=== PATIENT | male | born 1940 | race Caucasian/White ===

== ENCOUNTER 2019-03-08 13:48 | Inpatient (IN) | payer MEDICARE, OTHER ==
[~2019-03-08] VITALS: Ht 167.6 cm; Wt 67.8 kg
--- NOTE | 2019-03-08 14:02 | NUR ---
Note undone in EDM - 03/08/19 at 1516 by DARRELL ED Nurse Note: PT FROM [facility] DUE TO RECTAL BLEEDING STARTED LAST NIGHT. PT DENEIS ANY BLOOD IN HIS STOOL AND STATES THAT HE JUST HAVE PAIN ON HIS LESION ON HIS BACK. AAO X4, NON AMBULATORY WITH MILD SOB AT REST. NOTED DISTENDED ABDOMEN AND OPEN SORE ON HIS BACK.
--- NOTE | 2019-03-08 14:03 | NUR ---
ED Nurse Note: PT FROM [facility] DUE TO RECTAL BLEEDING STARTED LAST NIGHT. PT DENEIS ANY BLOOD IN HIS STOOL AND STATES THAT HE JUST HAVE PAIN ON HIS LESION ON HIS BACK. AAO X4, NON AMBULATORY WITH MILD SOB AT REST. NOTED DISTENDED ABDOMEN AND REDNESS ON HIS BACK.
[2019-03-08] MEDS ORDERED: Isovue-300 100ml vial INJ PRN (14:15)
[2019-03-08] MEDS ORDERED: Sodium Chloride 550 ML IV SCH (14:15)
--- NOTE | 2019-03-08 14:27 | Emergency Room Report ---
History of Present Illness General Chief Complaint: Gastrointestinal Bleed Source: Patient Present Illness HPI According to the residential facility the patient's had some rectal bleeding. The patient denies this. He says he is got a lesion on his left luteal area and its extremely painful. Is been there for several days. There is been no drainage. He has fluid retention and does not know why. He is here to have this lesion evaluated. The patient denies any abdominal pain although he states that he has distention. Denies vomiting. Review of records reveal these diagnoses: Heart failure, muscle weakness, unsteadiness on feet, pleural effusion, type 2 diabetes without complications, anemia, hypertension, HIV disease, gastric ulcer, acute kidney failure, chronic kidney disease, benign prostatic hypertrophy without lower urinary tract symptoms, abdominal distention, gaseous, diarrhea, urinary tract infection, adult failure to thrive The patient was admitted at [facility] from November 11 November 17 this year. Allergies: Coded Allergies: No Known Allergies (Unverified , 03/08/19) Patient History Past Medical History: see triage record, old chart reviewed Social History: Denies: smoking Social History Narrative [facility] facility Reviewed Nursing Documentation: PMH: Agreed; PSxH: Agreed Nursing Documentation-PMH Past Medical History: No History, Except For Hx Cardiac Problems: Yes - HF, Anemia, Hypotension, HIV+, BPH Hx Diabetes: Yes - Type 2 Review of Systems All Other Systems: negative except mentioned in HPI Physical Exam Vital Signs Date Time Temp Pulse Resp B/P (MAP) Pulse Ox O2 Delivery O2 Flow Rate FiO2 03/08/19 13:49 96.4 90 18 142/97 (112) 95 Room Air Sp02 EP Interpretation: reviewed, normal General Appearance: no apparent distress, alert, GCS 15, Chronically Ill Head: normocephalic, atraumatic Eyes: bilateral eye normal inspection, bilateral eye PERRL, bilateral eye EOMI ENT: dry mucus membranes Neck: supple Respiratory: lungs clear, normal breath sounds Cardiovascular #1: regular rate, rhythm, edema - Sarka Cardiovascular #2: 2+ radial (R) Gastrointestinal: no guarding, no rebound, distended, decreased bowel sounds Rectal: other - Yellow stool, no blood Genitourinary: no CVA tenderness, other - Rodriguez catheter Musculoskeletal: back normal, no calf tenderness, decreased range of motion - Due to edema Neurologic: oriented x3, outside sales representative insurance III-XII nml as tested, sensory intact, cerebellar normal, motor weakness Psychiatric: depressed affect Skin: other - Swelling and tenderness to the left of the rectum with induration and no fluctuance Medical Decision Making Diagnostic Impression: Primary Impression: Perirectal cellulitis Additional Impressions: UTI (urinary tract infection) Qualified Codes: T83.511A - Infection and inflammatory reaction due to indwelling urethral catheter, initial encounter; N39.0 - Urinary tract infection , site not specified Anasarca Renal insufficiency Ascites Qualified Codes: R18.8 - Other ascites ER Course Patient presents with a painful lesion to left of his rectum and there is a claim that he has GI bleeding although this is not apparent. Differential includes abscess, cellulitis, perirectal abscess, diverticulitis, heel decubitus , urinary tract infection, ascites amongst others. The patient will be evaluated with EKG, CT of the abdomen and pelvis and labs. The patient was offered several pain medications and he declined all of them. The patient will be treated with gentle IV hydration. EKG without injury. CT as below. Normal CBC. CMP with renal insufficiency and elevated alk phos. Urinalysis with pyuria. Zosyn and Vanco started for cellulitis and UTI. Patient examined by Dr. Major in the emergency department. Admit med floor Dr. Chong. Laboratory Tests Test 03/08/19 14:10 White Blood Count 7.4 K/UL (4.8-10.8) Red Blood Count 4.61 M/UL (4.70-6.10) L Hemoglobin 13.9 G/DL (14.2-18.0) L Hematocrit 44.7 % (42.0-52.0) Mean Corpuscular Volume 97 FL (80-99) Mean Corpuscular Hemoglobin 30.2 PG (27.0-31.0) Mean Corpuscular Hemoglobin Concent 31.2 G/DL (32.0-36.0) L Red Cell Distribution Width 15.5 % (11.6-14.8) H Platelet Count 139 K/UL (150-450) L Mean Platelet Volume 7.4 FL (6.5-10.1) Neutrophils (%) (Auto) 69.3 % (45.0-75.0) Lymphocytes (%) (Auto) 17.9 % (20.0-45.0) L Monocytes (%) (Auto) 12.5 % (1.0-10.0) H Eosinophils (%) (Auto) 0.2 % (0.0-3.0) Basophils (%) (Auto) 0.2 % (0.0-2.0) Erythrocyte Sedimentation Rate 15 MM/HR (0-20) Prothrombin Time 11.8 SEC (9.30-11.50) H Prothrombin Time INR 1.1 (0.9-1.1) PTT 29 SEC (23-33) Urine Color Pale yellow Urine Appearance Very cloudy Urine pH 9 (4.5-8.0) Urine Specific [place] 1.015 (1.005-1.035) Urine Protein 4+ (NEGATIVE) H Urine Glucose (UA) Negative (NEGATIVE) Urine Ketones Negative (NEGATIVE) Urine Blood 5+ (NEGATIVE) H Urine Nitrite Negative (NEGATIVE) Urine Bilirubin Negative (NEGATIVE) Urine Urobilinogen Normal MG/DL (0.0-1.0) Urine Leukocyte Esterase 3+ (NEGATIVE) H Urine RBC 5-10 /HPF (0 - 0) H Urine WBC 5-10 /HPF (0 - 0) H Urine Squamous Epithelial Cells None /LPF (NONE/OCC) Urine Bacteria Many /HPF (NONE) H Sodium Level 142 MMOL/L (136-145) Potassium Level 4.3 MMOL/L (3.5-5.1) Chloride Level 106 MMOL/L (98-107) Carbon Dioxide Level 27 MMOL/L (21-32) Anion Gap 9 mmol/L (5-15) Blood Urea Nitrogen 40 mg/dL (7-18) H Creatinine 1.7 MG/DL (0.55-1.30) H Estimate Glomerular Filtration Rate mL/min (>60) Glucose Level 205 MG/DL (74-106) H Calcium Level 9.1 MG/DL (8.5-10.1) Total Bilirubin 0.7 MG/DL (0.2-1.0) Aspartate Amino Transferase (AST) 35 U/L (15-37) Alanine Aminotransferase (ALT) 38 U/L (12-78) Alkaline Phosphatase 159 U/L (46-116) H Total Creatine Kinase 23 U/L (26-308) L Troponin I 0.049 ng/mL (0.000-0.056) C-Reactive Protein, Quantitative 5.8 mg/dL (0.00-0.90) H Total Protein 7.5 G/DL (6.4-8.2) Albumin 3.6 G/DL (3.4-5.0) Globulin 3.9 g/dL Albumin/Globulin Ratio 0.9 (1.0-2.7) L Lipase 347 U/L (73-393) EKG Diagnostic Results Rate: normal Rhythm: NSR ST Segments: no acute changes - Left atrial enlargement, incomplete right bundle branch block with ST inversions inferiorly and septally Rhythm Strip Diag. Results EP Interpretation: yes Rhythm: NSR, no PVC's, no ectopy CT/MRI/US Diagnostic Results CT/MRI/US Diagnostic Results : Imaging Test Ordered: Abdomen pelvis Impression Severe anal and anterior rectal wall thickening no identified abscess 0.7 cm left distal ureteral partially obstructing stone Bladder wall thickening Bilateral ureteral urothelial thickening concerning for ascending urinary tract infections Bilateral low-attenuation layering pleural effusions with passive atelectasis Calcifications posterior to the Rodriguez catheter potentially representing urolithiasis in the prostatic urethra Bilateral nonobstructing multiple nephroliths. Bilateral low-attenuation renal masses Large ascites with areas of omental fat stranding and edema Regular hepatic morphology suggesting chronic liver disease Bilateral adrenal nodular thickening and enlargement suggesting adrenal benign lipid rich adenomas ASCVD Large colonic stool burden Anasarca Degenerative spine findings with osteopenia and left hip advanced osteoarthritis with pelvic bone islands with consideration for sclerotic metastatic lesions Last Vital Signs Date Time Temp Pulse Resp B/P (MAP) Pulse Ox O2 Delivery O2 Flow Rate FiO2 03/08/19 20:00 97.4 85 24 147/99 (115) 97 03/08/19 18:20 Room Air Status: improved Disposition: ADMITTED INPATIENT Condition: Serious Garfield Mendez MD Mar 08, 2019 14:27
[2019-03-08 14:30] VITALS: BP 140/83
[2019-03-08 14:34] LABS: BASOPHILS % (AUTO) 0.2 % (0.0-2.0); EOSINOPHILS % (AUTO) 0.2 % (0.0-3.0); HEMATOCRIT 44.7 % (42.0-52.0); HEMOGLOBIN 13.9 G/DL (14.2-18.0); LYMPHOCYTES % (AUTO) 17.9 % (20.0-45.0); MEAN CORPUSCULAR VOLUME 97 FL (80-99); MONOCYTES % (AUTO) 12.5 % (1.0-10.0); NEUTROPHILS % (AUTO) 69.3 % (45.0-75.0); PLATELET COUNT 139 K/UL (150-450); RED BLOOD COUNT 4.61 M/UL (4.70-6.10); RED CELL DISTRIBUTION WIDTH 15.5 % (11.6-14.8); WHITE BLOOD COUNT 7.4 K/UL (4.8-10.8)
[2019-03-08 14:45] LABS: ANION GAP 9 mmol/L (5-15); BLOOD UREA NITROGEN 40 mg/dL (7-18); CALCIUM 9.1 MG/DL (8.5-10.1); CARBON DIOXIDE 27 MMOL/L (21-32); CHLORIDE 106 MMOL/L (98-107); CREATININE 1.7 MG/DL (0.55-1.30); POTASSIUM 4.3 MMOL/L (3.5-5.1); SODIUM 142 MMOL/L (136-145)
[2019-03-08 14:46] LABS: APPEARANCE,URINE VERY CLOUDY; BILIRUBIN, URINE NEGATIVE (NEGATIVE); COLOR,URINE PALE YELLOW; GLUCOSE, URINE (UA) NEGATIVE (NEGATIVE); INR 1.1 (0.9-1.1); KETONES,URINE NEGATIVE (NEGATIVE); LEUKOCYTE ESTERASE ,URINE 3+ (NEGATIVE); NITRITE,URINE NEGATIVE (NEGATIVE); PH,URINE 9 (4.5-8.0); PROTEIN,URINE 4+ (NEGATIVE); UROBILINOGEN,URINE NORMAL MG/DL (0.0-1.0)
[2019-03-08 14:50] LABS: ALANINE AMINOTRANSFERASE 38 U/L (12-78); ALBUMIN 3.6 G/DL (3.4-5.0); ALBUMIN/GLOBULIN RATIO 0.9 (1.0-2.7); ALKALINE PHOSPHATASE 159 U/L (46-116); ASPARTATE AMINO TRANSFERASE 35 U/L (15-37); BILIRUBIN,TOTAL 0.7 MG/DL (0.2-1.0); CREATINE KINASE 23 U/L (26-308)
--- NOTE | 2019-03-08 15:00 | NUR ---
ED Nurse Note: ORAL CONTRAST DRANK AT 1500.
[2019-03-08] MEDS ORDERED: Piperacillin/Tazobactam 3.375 GM in NS 110 ML IVPB ONE (15:45)
[2019-03-08] MEDS ORDERED: Vancomycin 1 GM in NS 275 ML IVPB ONE (15:45)
[2019-03-08 16:20] VITALS: BP 150/95
[2019-03-08] MEDS ORDERED: FUROSEMIDE40 MG ORAL (16:36)
[2019-03-08] MEDS ORDERED: LANTUS SOL100 UNIT/1 SUBQ (16:36)
[2019-03-08] MEDS ORDERED: FLOMAX0.4 MG ORAL (16:36)
[2019-03-08] MEDS ORDERED: FERROUS SULFAT325 MG ORAL (16:36)
[2019-03-08] MEDS ORDERED: ALREX5 ML OP (16:36)
[2019-03-08] MEDS ORDERED: BETIMOL5 M2 OP (16:36)
[2019-03-08] MEDS ORDERED: URECHOLINE25 M1 ORAL (16:36)
[2019-03-08] MEDS ORDERED: MULTIVITAMINS1 EA13 ORAL (16:36)
[2019-03-08] MEDS ORDERED: NEPHROVITE1 TAB ORAL (16:36)
--- NOTE | 2019-03-08 17:18 | NUR ---
ED Nurse Note: REPORT GIVEN TO TONYA BOB OF MED SURG UNIT.
[2019-03-08] MEDS ORDERED: LORazepam 1mg tab ORAL PRN (17:30)
[2019-03-08] MEDS ORDERED: Morphine Sulfate 2mg/ml Inj(IV/IM USE ONLY) IVP PRN ×2 (17:30)
--- NOTE | 2019-03-08 18:16 | NUR ---
NURSE NOTES: Admitted pt from ER with stable condition under dr. Ellsworth for Gi bleeding. pt denies any bleeding at this time. pt is a/ox4, breathing regular and unlabored. Full body assessment was done and noted with sacral redness and (B)heel redness. pt has generalized body edema. picture taken and uploaded. pt also noted with high blood pressure 162/108 HR 90. Called and spoke with Dr. howell and received new order. pt came with melendez catheter from previous snf and draining well. IV site intact and patent. belongings checked and kept at bedside. will continue to monitor
[2019-03-08] MEDS: Bethanechol 25mg Tab ORAL SCH ×2 (18:37→21:24)
[2019-03-08] MEDS: HydrALAZINE 25mg tab ORAL PRN (18:38)
--- NOTE | 2019-03-08 19:12 | NUR ---
HAND-OFF: Report given to PAULINO Medley.
--- NOTE | 2019-03-08 19:52 | History and Physical ---
History of Present Illness General Date patient seen: Mar 08, 2019 Time patient seen: 15:00 Reason for Hospitalization: Gastrointestinal Bleed Present Illness HPI 78 y old male with HIV on HARRT therapy and CKD 3-4 who is a resident of [facility]. TOday, he developed acute rectal bleed and is transferred for evaluation .On admission he is with normal vital signs and no more bleeding is noted, He will be admitted for medical and surgical evaluation, UTI was noted by the ER and broad sp antibiotics were started, cultures collected, Allergies: Coded Allergies: No Known Allergies (Unverified , 03/08/19) Medication History Scheduled Bethanechol Chl* (Urecholine*), 25 MG ORAL FOUR TIMES A DAY, (Reported) Ferrous Sulfate* (Ferrous Sulfate*), 325 MG ORAL TWICE A DAY, (Reported) Furosemide* (Lasix*), 40 MG ORAL DAILY, (Reported) Insulin Glargine (Lantus), 0 SUBQ BEDTIME, (Reported) Multivitamin with Minerals (Multivitamins with Minerals), 1 TAB ORAL DAILY, ( Reported) Tamsulosin HCl (Flomax), 0.4 MG ORAL DAILY, (Reported) Vitamin B Cmplx/Vit C/Folic AC (Nephro-[place] Tablet), 1 TAB ORAL DAILY, (Reported ) Miscellaneous Medications Loteprednol Etabonate (Alrex), 5 ML OP, (Reported) Timolol (Betimol), 5 ML OP, (Reported) Patient History Healthcare decision maker Resuscitation status Full Code Advanced Directive on File Yes Review of Systems Constitutional: Reports: no symptoms Gastrointestinal: Reports: see HPI, melena Physical Exam General Appearance: WD/WN Lines, tubes and drains: peripheral HEENT: normocephalic Neck: non-tender Respiratory/Chest: chest wall non-tender, lungs clear Cardiovascular/Chest: normal rate Abdomen: non tender, distended Neurologic: glove cleaner II-XII grossly normal Last 24 Hour Vital Signs Date Time Temp Pulse Resp B/P (MAP) Pulse Ox O2 Delivery O2 Flow Rate FiO2 03/08/19 18:38 162/108 03/08/19 18:20 Room Air 03/08/19 16:20 98.6 86 17 150/95 98 Room Air 03/08/19 14:30 97.0 86 14 140/83 97 Room Air 7/15/19 14:02 90 18 Room Air 03/08/19 13:49 96.4 90 18 142/97 (112) 95 Room Air Laboratory Tests Test 03/08/19 14:10 White Blood Count 7.4 K/UL (4.8-10.8) Red Blood Count 4.61 M/UL (4.70-6.10) L Hemoglobin 13.9 G/DL (14.2-18.0) L Hematocrit 44.7 % (42.0-52.0) Mean Corpuscular Volume 97 FL (80-99) Mean Corpuscular Hemoglobin 30.2 PG (27.0-31.0) Mean Corpuscular Hemoglobin Concent 31.2 G/DL (32.0-36.0) L Red Cell Distribution Width 15.5 % (11.6-14.8) H Platelet Count 139 K/UL (150-450) L Mean Platelet Volume 7.4 FL (6.5-10.1) Neutrophils (%) (Auto) 69.3 % (45.0-75.0) Lymphocytes (%) (Auto) 17.9 % (20.0-45.0) L Monocytes (%) (Auto) 12.5 % (1.0-10.0) H Eosinophils (%) (Auto) 0.2 % (0.0-3.0) Basophils (%) (Auto) 0.2 % (0.0-2.0) Erythrocyte Sedimentation Rate 15 MM/HR (0-20) Prothrombin Time 11.8 SEC (9.30-11.50) H Prothromb Time International Ratio 1.1 (0.9-1.1) Activated Partial Thromboplast Time 29 SEC (23-33) Urine Color Pale yellow Urine Appearance Very cloudy Urine pH 9 (4.5-8.0) Urine Specific [place] 1.015 (1.005-1.035) Urine Protein 4+ (NEGATIVE) H Urine Glucose (UA) Negative (NEGATIVE) Urine Ketones Negative (NEGATIVE) Urine Blood 5+ (NEGATIVE) H Urine Nitrite Negative (NEGATIVE) Urine Bilirubin Negative (NEGATIVE) Urine Urobilinogen Normal MG/DL (0.0-1.0) Urine Leukocyte Esterase 3+ (NEGATIVE) H Urine RBC 5-10 /HPF (0 - 0) H Urine WBC 5-10 /HPF (0 - 0) H Urine Squamous Epithelial Cells None /LPF (NONE/OCC) Urine Bacteria Many /HPF (NONE) H Sodium Level 142 MMOL/L (136-145) Potassium Level 4.3 MMOL/L (3.5-5.1) Chloride Level 106 MMOL/L (98-107) Carbon Dioxide Level 27 MMOL/L (21-32) Anion Gap 9 mmol/L (5-15) Blood Urea Nitrogen 40 mg/dL (7-18) H Creatinine 1.7 MG/DL (0.55-1.30) H Estimat Glomerular Filtration Rate mL/min (>60) Glucose Level 205 MG/DL (74-106) H Calcium Level 9.1 MG/DL (8.5-10.1) Total Bilirubin 0.7 MG/DL (0.2-1.0) Aspartate Amino Transf (AST/SGOT) 35 U/L (15-37) Alanine Aminotransferase (ALT/SGPT) 38 U/L (12-78) Alkaline Phosphatase 159 U/L (46-116) H Total Creatine Kinase 23 U/L (26-308) L Troponin I 0.049 ng/mL (0.000-0.056) C-Reactive Protein, Quantitative 5.8 mg/dL (0.00-0.90) H Total Protein 7.5 G/DL (6.4-8.2) Albumin 3.6 G/DL (3.4-5.0) Globulin 3.9 g/dL Albumin/Globulin Ratio 0.9 (1.0-2.7) L Lipase 347 U/L (73-393) Height (Feet): 5 Height (Inches): 6.00 Weight (Pounds): 150 Medications Current Medications Medications (Trade) Dose Ordered Sig/Dex Route PRN Reason Start Time Stop Time Status Last Admin Dose Admin Acetaminophen (Tylenol) 650 mg Q4H PRN ORAL Mild Pain (Pain Scale 1-3) 03/08/19 17:30 04/07/19 17:29 Barium Sulfate (Readi-Cat 2) 450 ml NOW PRN ORAL Radiology Procedure 03/08/19 14:15 03/10/19 14:04 Bethanechol Chloride (Urecholine) 25 mg FOUR TIMES A DAY ORAL 03/08/19 18:00 04/07/19 17:59 03/08/19 18:37 Dextrose (Dextrose 50%) 25 ml Q30M PRN IV Hypoglycemia 03/08/19 17:30 04/07/19 17:29 Dextrose (Dextrose 50%) 50 ml Q30M PRN IV Hypoglycemia 03/08/19 17:30 04/07/19 17:29 Ferrous Sulfate (Feosol) 325 mg TWICE A DAY ORAL 03/08/19 18:00 04/07/19 17:59 03/08/19 18:37 Furosemide (Lasix) 40 mg DAILY ORAL 03/09/19 09:00 04/08/19 08:59 Hydralazine HCl (Apresoline) 25 mg Q6H PRN ORAL For High Blood Pressure 03/08/19 18:30 04/07/19 18:29 03/08/19 18:38 Lorazepam (Ativan) 1 mg Q4H PRN ORAL For Anxiety 03/08/19 17:30 03/15/19 17:29 Morphine Sulfate (Morphine Sulfate) 1 mg Q4H PRN IVP Mild Pain (Pain Scale 1-3) 03/08/19 17:30 03/15/19 17:29 Morphine Sulfate (Morphine Sulfate) 2 mg Q4H PRN IVP Moderate Pain (Pain Scale 4-6) 03/08/19 17:30 03/15/19 17:29 Ondansetron HCl (Zofran) 4 mg Q6H PRN IVP Nausea & Vomiting 03/08/19 17:30 04/07/19 17:29 Piperacillin Sod/ Tazobactam Sod 3.375 gm/Sodium Chloride 110 ml @ 27.5 mls/hr Q8H IVPB 03/09/19 00:00 03/16/19 00:00 Sodium Chloride 1,000 ml @ 50 mls/hr ONCE ONCE IV 03/08/19 17:30 03/09/19 13:29 03/08/19 18:38 Tamsulosin HCl (Flomax) 0.4 mg DAILY ORAL 03/09/19 09:00 04/08/19 08:59 Temazepam (Restoril) 15 mg HSPRN PRN ORAL Insomnia 03/08/19 17:30 03/15/19 17:29 Vitamin B Complex/ Vit C/Folic Acid (Nephrovite) 1 tab DAILY ORAL 03/09/19 09:00 04/08/19 08:59 Assessment/Plan Status Narrative 78 y/o male with acute rectal bleed. # Rectal bleeding Hb is stable Monitor CBC in amd and surgical consult requested via ER attending with Dr. Soto, ? hemorrhoid vs other # HIV disease Continue HARRT # LEukocytosis UA is positive COntinue antibiotics and follow up cultures # CKD 3-4 Avoid nephrotoxins Serial creatinine # Disposition SNF resident _# FULL CODE Juan Carlos Major MD Mar 08, 2019 19:52
[2019-03-08 20:00] VITALS: BP 147/99
--- NOTE | 2019-03-08 20:07 | NUR ---
NURSE NOTES: Received report from Lacey Coyle RN. Patient sleeping. On room air, no signs of distress or labored breathing. IV intact, patent, and running IV fluids. bed in lowest position with call light in reach. Will continue with plan of care.
[2019-03-08] MEDS ORDERED: Zosyn 2.25gm inj IV SCH (22:00)
[2019-03-09] VITALS: BP 154/104
[2019-03-09] MEDS: Zoysn 3.37gm in NS 100ML IVPB SCH ×3 (00:36→17:07)
[2019-03-09 04:00] VITALS: BP 164/113
[2019-03-09] MEDS: HydrALAZINE 25mg tab ORAL PRN ×2 (06:06→13:10)
[2019-03-09 07:08] LABS: BASOPHILS % (AUTO) 0.3 % (0.0-2.0); EOSINOPHILS % (AUTO) 0.3 % (0.0-3.0); HEMATOCRIT 42.1 % (42.0-52.0); HEMOGLOBIN 12.9 G/DL (14.2-18.0); LYMPHOCYTES % (AUTO) 15.7 % (20.0-45.0); MEAN CORPUSCULAR VOLUME 97 FL (80-99); MONOCYTES % (AUTO) 11.1 % (1.0-10.0); NEUTROPHILS % (AUTO) 72.6 % (45.0-75.0); PLATELET COUNT 142 K/UL (150-450); RED BLOOD COUNT 4.33 M/UL (4.70-6.10); RED CELL DISTRIBUTION WIDTH 15.7 % (11.6-14.8); WHITE BLOOD COUNT 7.5 K/UL (4.8-10.8)
[2019-03-09 07:12] LABS: ALANINE AMINOTRANSFERASE 32 U/L (12-78); ALBUMIN 3.2 G/DL (3.4-5.0); ALBUMIN/GLOBULIN RATIO 0.9 (1.0-2.7); ALKALINE PHOSPHATASE 140 U/L (46-116); ANION GAP 8 mmol/L (5-15); ASPARTATE AMINO TRANSFERASE 24 U/L (15-37); BILIRUBIN,TOTAL 0.7 MG/DL (0.2-1.0); BLOOD UREA NITROGEN 36 mg/dL (7-18); CALCIUM 8.7 MG/DL (8.5-10.1); CARBON DIOXIDE 28 MMOL/L (21-32); CHLORIDE 107 MMOL/L (98-107); POTASSIUM 4.1 MMOL/L (3.5-5.1); SODIUM 143 MMOL/L (136-145)
--- NOTE | 2019-03-09 07:37 | NUR ---
NURSE NOTES: pt in bed with no sob nor in any form of distress noted. Breathing regular unlabored. Rodriguez draining well with no obstruction. IVF still running. bed in lowest position. call light within reach at all time. will continue to monitor
--- NOTE | 2019-03-09 07:48 | NUR ---
HAND-OFF: Report given to YAS MIR rn.
[2019-03-09 08:00] VITALS: BP 149/106
[2019-03-09 08:12] LABS: CREATININE 1.8 MG/DL (0.55-1.30)
[2019-03-09] MEDS ORDERED: Furosemide 40mg tab ORAL SCH (09:00)
[2019-03-09] MEDS: Bethanechol 25mg Tab ORAL SCH ×4 (09:07→21:01)
[2019-03-09] MEDS: Nephrovite tab (Rena-Vite) ORAL SCH (09:07)
[2019-03-09] MEDS: Tamsulosin 0.4mg cap ORAL SCH (09:07)
--- NOTE | 2019-03-09 09:23 | Diagnostic Imaging Report ---
Indication: Rectal bleeding and pain, gluteal area lesion Technique: Spiral acquisitions obtained through the abdomen and pelvis. Patient ingested a small amount of enteric contrast. No IV contrast utilized, per referring physician request.. Multiplanar reconstructions were generated. Total dose length product 868.72 mGycm. CTDIvol(s) 15.23 mGy. Dose reduction achieved using automated exposure control Comparison: None Findings: Lack of IV contrast limits evaluation. There is some wall thickening of the anal region. There is some infiltration of the perirenal fat, particularly posterior to the anus, but no discrete fluid collection demonstrated. There may be slight superficial ulceration. No soft tissue gas is demonstrated in the area. There is very slight distention of the rectum by feces. There is a moderate amount of ascites fluid present. No free intraperitoneal gas demonstrated. There is a sliding-type hiatal hernia present. There is nonopacification of the posterior stomach. This could be wall thickening or could be due to ingested contents. The appendix is normal. There is colonic diverticulosis. No evidence of diverticulitis. No small bowel distention or small bowel wall thickening. Ingested contrast has traversed the entirety of the small bowel and reached the cecum. There is congestion as well as stranding of the mesenteric fat. Lack of IV contrast limits assessment of the solid organs. The liver demonstrates a subcentimeter lesion in segment 8 which is too small to characterize. There is equivocal slightly irregular hepatic surface morphology and relative slight atrophy of the right lobe and hypertrophy of the left lobe. The gallbladder and bile ducts are unremarkable. The pancreas is atrophic. The spleen is unremarkable. The the left adrenal is diffusely markedly enlarged. The right adrenal is mildly enlarged. The kidneys demonstrate bilateral intrarenal calyceal calculi. There also demonstrate multiple cysts, as well as multiple subcentimeter low-attenuation lesions which are too small to characterize. There are some indeterminate attenuation lesions as well. There is a 7 x 5 mm calculus within the distal left ureter possibly 5 cm proximal to the ureterovesical junction. This results in mild hydronephrosis and proximal hydroureter. The bladder is nearly empty, contains a Rodriguez catheter. There is suggestion of bladder wall thickening. Numerous calculi are seen within the bladder lumen, measuring up to 12 mm in diameter. There is thickening of the bilateral ureteral and renal pelvic velasquez. Calcifications in the prostate are probably parenchymal, although 2 small calcifications adjacent to the shaft of the Rodriguez catheter could be intraluminal within the urethra There is diffuse edema of the subcutaneous fat. There are bilateral large pleural effusions. These result in compressive atelectasis of a significant portion of both lower lobes. The bones demonstrate degenerative spondylosis changes. There are severe degenerative changes of the left hip. Impression: Anal wall thickening, perianal inflammation may indicate proctitis. There is some inflammation extending to the skin surface posterior to the anus and possibly some superficial ulceration, but no abscess is demonstrated Positive for 7 x 5 mm distal left ureteral calculus. This results in very mild hydronephrosis and proximal hydroureter Numerous intrarenal calyceal calculi bilaterally. Numerous bladder calculi. Calcifications within the prostate are probably parenchymal but one or more could be intraureteral Apparent urinary bladder wall thickening, probably an artifact of under distention, but chronic bladder outlet obstruction or cystitis possible Rodriguez catheter in place. Bilateral renal cysts. Indeterminate attenuation renal lesions are also present, probably representing proteinaceous cysts but solid neoplasm not excludable. Consider MRI for better characterization if clinically indicated Apparent urothelial thickening, could indicate ureteritis/pyelitis. Moderate to large amount of ascites. Omental and mesenteric congestion. Omental fat stranding is probably secondary to edema, but infiltration with neoplasm not completely excludable. Nonopacification of the posterior stomach, probably due to ingested contents, but true wall thickening and therefore neoplasm also possible. Colonic diverticulosis. No evidence of diverticulitis Bilateral pleural effusions. Passive atelectasis of much of both lower lobes Evidence of anasarca, with diffuse edema of the subcutaneous fat, in addition to the pleural fluid,, ascites, and mesenteric congestion Severe degenerative changes of the left hip. Degenerative spondylosis changes Bilateral left greater than right adrenal enlargement, could indicate adenomatous hypertrophy Equivocal abnormal hepatic architecture, could indicate cirrhotic changes. Correlate with clinical history Subcentimeter low-attenuation right lobe liver lesion, too small to characterize, most likely benign simple cyst or bile hamartoma. No further follow-up necessary This agrees with the preliminary interpretation provided overnight by [facility] teleradiology service. The CT scanner at [facility] is accredited by the [employer] and the scans are performed using protocols designed to limit radiation exposure to as low as reasonably achievable to attain images of sufficient resolution adequate for diagnostic evaluation.
[2019-03-09 12:00] VITALS: BP 162/102
--- NOTE | 2019-03-09 15:41 | NUR ---
P.T Note: Pt refused to participated in P.T evaluation despite encouragement. Will reattempt tomorrow. RN notified.
--- NOTE | 2019-03-09 15:54 | NUR ---
NURSE NOTES:WOUND CARE NOTES:Pt presented on admission with Full thickness pressure injury L Ischium. Scattered slough with erythema at base of wound (L)1.2cm x (W)0.8cm x (W)0.4cm. Borders are macerated with maroon discoloration without induration periwound. Pt verbalized tenderness at site. Pt also stated that he spends most of daytime sitting up in a W/c at [facility].Pt verbalized in [past was able to shift his weight while sitting but no longer able to shift weight .Pt stated he has a gelfoam cushion on his W/C. Maroon discoloration without induration,fluctuance or tenderness noted to sacral area (L)6.5cm x (W)6.5cm.. Haemosiderin stain noted to bilat lower ext. Pt noted to have tez bandages to both lower ext. Upon removal pt noted to skin indentations from wraps . No edemae noted to R or L lower extremities. Pt stated he does have History of swelling in lower ext. Rubor noted to plantar aspects of R and L feet. Both heels are fluctuant but pt denied tenderness when both heels palpated. Recommendations: Cleanse L Ischial wound with Saline. Apply Therahoney. Apply Cavilon Skin Barrier Periwound. Cover with Optifoam drsg Daily and prn. Apply Triad Paste to Sacrum. Cover with Optifoam drsg. Change every 3 days and prn. Apply Cavilon Skin Barrier to Both heels. Cover each heel with Optifoam drsg. Change every 7 days and prn. Apply Phytoplex Skin Nourishing Lotion to both lower ext Daily and PRN. Reposition at least every 2hours or as tolerated. Off-load heels with Pillow. APM/TETE Mattress Overlay.
--- NOTE | 2019-03-09 15:57 | General Progress Note ---
Assessment/Plan Assessment/Plan: Status Narrative 78 y/o male with acute rectal bleed. # Rectal bleeding resolved. Hb is stable Monitor CBC # HIV disease Continue HARRT Need to get the name and dose from [facility]. Left message and no response. # Leukocytosis most likely due to UTI Continue antibiotics and follow up cultures. Bacilli noted in the urine and will stop Vancomycin. Continue Zosyn for now Cultures needed for proper therapy and dc plan # CKD 3-4 Avoid nephrotoxins Serial creatinine # Disposition SNF resident # FULL CODE Subjective Constitutional: Reports: weakness Allergies: Coded Allergies: No Known Allergies (Unverified , 03/08/19) All Systems: reviewed and negative except above Subjective Abdominal and flank distention. DENIES flank pain, fever or chills Objective Last 24 Hour Vital Signs Date Time Temp Pulse Resp B/P (MAP) Pulse Ox O2 Delivery O2 Flow Rate FiO2 03/09/19 13:10 162/102 03/09/19 12:00 97.1 88 20 162/102 (122) 96 03/09/19 09:00 Room Air 03/09/19 08:00 97.1 85 20 149/106 (120) 97 03/09/19 06:06 164/113 03/09/19 04:00 97.0 79 24 164/113 (130) 99 03/09/19 00:00 97.1 84 24 154/104 (121) 97 03/08/19 21:00 Room Air 03/08/19 20:00 97.4 85 24 147/99 (115) 97 03/08/19 18:38 162/108 03/08/19 18:20 Room Air 03/08/19 16:20 98.6 86 17 150/[address] AP reviewed. L distal ureter 5 x 7 mm stone Minimal hydronephrosis Thickened anal area and NO ABSCESS noted. Ascites and minimal pleural effusion noted. Intake and Output 03/08/19 03/09/19 19:00 07:00 Intake Total 235 ml Output Total 1000 ml Balance 235 ml -1000 ml Intake IV Total 235 ml Output Urine Total 1000 ml # Voids 1 Laboratory Tests 03/09/19 06:15: White Blood Count 7.5, Red Blood Count 4.33L, Hemoglobin 12.9L, Hematocrit 42.1 , Mean Corpuscular Volume 97, Mean Corpuscular Hemoglobin 29.9, Mean Corpuscular Hemoglobin Concent 30.8L, Red Cell Distribution Width 15.7H, Platelet Count 142L, Mean Platelet Volume 7.8, Neutrophils (%) (Auto) 72.6, Lymphocytes (%) (Auto) 15.7L, Monocytes (%) (Auto) 11.1H, Eosinophils (%) (Auto ) 0.3, Basophils (%) (Auto) 0.3, Sodium Level 143, Potassium Level 4.1, Chloride Level 107, Carbon Dioxide Level 28, Anion Gap 8, Blood Urea Nitrogen 36H, Creatinine 1.8H, Estimat Glomerular Filtration Rate , Glucose Level 166H, Calcium Level 8.7, Magnesium Level 2.4, Total Bilirubin 0.7, Aspartate Amino Transf (AST/SGOT) 24, Alanine Aminotransferase (ALT/SGPT) 32, Alkaline Phosphatase 140H, Total Protein 6.9, Albumin 3.2L, Globulin 3.7, Albumin/ Globulin Ratio 0.9L, Vancomycin Level Trough 4.3L Height (Feet): 5 Height (Inches): 6.00 Weight (Pounds): 150 Juan Carlos Major MD Mar 09, 2019 15:57
[2019-03-09 16:00] VITALS: BP 154/87
--- NOTE | 2019-03-09 16:51 | NUR ---
FIELD ARTILLERY CREWMEMBERANTENNA RIGGER 78 Y/O MALE BIBA FROM [facility] TO [facility] [place] CC:GI BLEED SI:PERIRECTAL CELLULITIS . ANASARCA . ASCITES VS: BP 142/97, P 90, T 96.5, RR 18, SpO2 95 RBC 4.61, Hgb 13.9, BUN 40, Cr 1.7, GLUCOSE 205, ALP 159 IS:NS 550ml IV VANCOMYCIN 275ml IVPB MED/SURG STATUS Addendum: 03/09/19 at 1701 by Annemarie Londono LVN DCP: RETURN TO [facility]
[2019-03-09] MEDS: Furosemide 40mg tab ORAL SCH (17:11)
[2019-03-09] MEDS ORDERED: Tubing IV Secondary IV ONE (17:17)
--- NOTE | 2019-03-09 18:51 | Cardiology Report ---
APPROVED REPORT EKG Measurement Heart [id number] Normal sinus rhythm Possible Left atrial enlargement Incomplete right bundle branch block Prolonged QT Abnormal ECG
--- NOTE | 2019-03-09 19:13 | NUR ---
HAND-OFF: Report given to PAULINO Medley.
--- NOTE | 2019-03-09 19:30 | NUR ---
NURSE NOTES: Received report from YAS MIR RN. Patient A&Ox4. On room air, no signs of distress or labored breathing. IV intact, patent, and infusing fluids. Bed in lowest position with call light in reach. Will continue with plan of care.
[2019-03-09 20:00] VITALS: BP 143/94
--- NOTE | 2019-03-09 22:30 | Consultation ---
DATE OF CONSULTATION: 03/09/2019 CONSULTING PHYSICIAN: Luc Carr M.D. REFERRING PHYSICIAN: REASON FOR CONSULTATION: For evaluation of multiple urologic issues. HISTORY OF PRESENT ILLNESS: This is a 78-year-old male with multiple medical problems, who is a resident of a [facility] facility. He had an acute rectal bleed and was brought to the emergency room for evaluation. He had a workup including CT scan, which showed number of urologic issues and Urology evaluation requested. Specifically, he was noted to have bladder calculi as well as 7 mm stone of the left distal ureter with very mild hydronephrosis. There was also mention of renal cysts and adrenal adenoma. Apparently, the patient has had a history of stones. He currently has no flank pain. He has mild chronic kidney disease. He has a history of BPH with urinary retention and possible neurogenic bladder for which he has had a chronic indwelling Rodriguez catheter. Apparently, the catheter was changed about a week or so ago in the care home. He was noted to have pyuria, UTI, and has been on antibiotics. PAST MEDICAL HISTORY: Significant for above also history of HIV, history of chronic kidney disease as noted above. PAST SURGICAL HISTORY: Unknown. CURRENT MEDICATIONS: Here in the hospital, the patient is on Lasix, Flomax, Zosyn, Apresoline, Urecholine, Feosol, Tylenol, morphine, Zofran, Restoril. ALLERGIES: No known drug allergies. SOCIAL HISTORY: He is a resident of a care home. REVIEW OF SYSTEMS: As above, no flank pain. FAMILY HISTORY: Noncontributory. PHYSICAL EXAMINATION: GENERAL: Elderly male, in no acute distress. Slightly cachectic. VITAL SIGNS: Temperature is 97.4, blood pressure 154/87. HEENT: Normocephalic. NECK: Supple. ABDOMEN: Slightly distended. Rodriguez catheter is in place. He has some penile edema. Urine is grossly yellow. BACK: There is no CVA tenderness. LABORATORY DATA: Admission UA showed 4+ protein, 5 to 10 rbc's, 5 to 10 wbc's, and many bacteria. White count is 7.5, hemoglobin 12.9, platelets 142. BUN 36, creatinine is 1.8. I believe this is his baseline renal function. Urine culture from yesterday thus far shows gram-negative rods. DIAGNOSTIC IMAGING STUDIES: The patient had a CT scan of the abdomen and pelvis, this was a noncontrast study. There was mention of an anal wall thickening and inflammation consistent with proctitis. There was a 7 x 5 mm stone at the distal left ureter with very mild hydronephrosis, multiple intrarenal calculi bilaterally, bladder calcifications as well as prostatic calcifications. There was mention of a renal cyst and indeterminate renal lesion possibly proteinaceous cyst versus possible mass. There was also mention of bilateral adrenal enlargement, possibly hypertrophy. IMPRESSION: 1. BPH history. 2. Urinary retention with chronic Rodriguez. 3. Probable neurogenic bladder. 4. Urinary tract infection and probable chronic colonization. 5. Hematuria. 6. Proteinuria. 7. Nephrolithiasis. 8. Mild hydronephrosis. 9. Renal cysts. 10. Penile edema. 11. Adrenal adenoma. 12. Chronic kidney disease. PLAN AND DISCUSSION: Again as noted above, the patient does have a history of BPH with urinary retention, chronic Rodriguez. 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 He has a positive UA and culture, most likely chronic colonization. He appears nontoxic and his Rodriguez apparently been changed recently. He is draining fairly well. Continue antibiotics as ordered. He does have numerous calculi in kidney and has a stone in the left distal ureter with very mild hydronephrosis. These appeared to be all chronic findings as he is not having any pain at this time. His renal function is at baseline. At this time, I would recommend conservative management with monitoring of renal function. The patient does have an outside urologist that he normally sees. Once his proctitis is better, he can potentially have treatment of the above stones on an elective basis. For now, he will be monitored with antibiotics and the Rodriguez is to remain indwelling. I will follow the patient. Thank you for this consultation. Luc Carr M.D. DR: Juliane JOB#: [id number] CC:
[2019-03-10] VITALS: BP 145/92
[2019-03-10] MEDS: Zoysn 3.37gm in NS 100ML IVPB SCH ×3 (01:15→15:07)
[2019-03-10 04:00] VITALS: BP 143/94
--- NOTE | 2019-03-10 04:30 | NUR ---
NURSE NOTES: Received notification from Darren in microbiology lab that patient is positive for VRE rectum. Left message for MD via doctor's exchange.
[2019-03-10 06:47] LABS: ANION GAP 10 mmol/L (5-15); BLOOD UREA NITROGEN 31 mg/dL (7-18); CALCIUM 8.7 MG/DL (8.5-10.1); CARBON DIOXIDE 29 MMOL/L (21-32); CHLORIDE 108 MMOL/L (98-107); CREATININE 1.7 MG/DL (0.55-1.30); POTASSIUM 3.4 MMOL/L (3.5-5.1); SODIUM 147 MMOL/L (136-145)
[2019-03-10 06:54] LABS: BASOPHILS % (AUTO) 0.3 % (0.0-2.0); EOSINOPHILS % (AUTO) 0.3 % (0.0-3.0); HEMATOCRIT 43.3 % (42.0-52.0); HEMOGLOBIN 13.5 G/DL (14.2-18.0); LYMPHOCYTES % (AUTO) 23.8 % (20.0-45.0); MEAN CORPUSCULAR VOLUME 96 FL (80-99); NEUTROPHILS % (AUTO) 62.6 % (45.0-75.0); PLATELET COUNT 134 K/UL (150-450); RED CELL DISTRIBUTION WIDTH 15.5 % (11.6-14.8); WHITE BLOOD COUNT 5.3 K/UL (4.8-10.8)
--- NOTE | 2019-03-10 07:55 | NUR ---
NURSE NOTES: Patient awake, alert x3; on room air, no sign of distress and shortness of breath; IV LAC TKO; bed at lowest position, side rails up x2, breaks engaged; call light within reach; will keep monitoring.
[2019-03-10 08:00] VITALS: BP 173/105
--- NOTE | 2019-03-10 08:23 | NUR ---
HAND-OFF: Report given to PAULINO Bacon.
--- NOTE | 2019-03-10 08:53 | NUR ---
P.T Note: P.T evaluation attempted. Pt encouraged and educated on importance of therapy and OOB activities VS bedrest. Pt however stated that he does not want to have P.T and would rather have it when he gets back to the facility where he stays. Spoked with RN re: pt's refusal. Will DC P.T services at this time. P.T will be notified if patient decided to participate.
[2019-03-10] MEDS: Tamsulosin 0.4mg cap ORAL SCH (08:54)
[2019-03-10] MEDS: Furosemide 40mg tab ORAL SCH ×2 (08:54→17:09)
[2019-03-10] MEDS: Bethanechol 25mg Tab ORAL SCH ×4 (08:54→23:09)
[2019-03-10] MEDS: Nephrovite tab (Rena-Vite) ORAL SCH (08:54)
--- NOTE | 2019-03-10 09:41 | Urology Progress Note ---
Assessment/Plan Assessment/Plan: 1. BPH history. 2. Urinary retention with chronic Melendez. 3. Probable neurogenic bladder. 4. Urinary tract infection and probable chronic colonization. 5. Hematuria. 6. Proteinuria. 7. Nephrolithiasis. 8. Mild hydronephrosis. 9. Renal cysts. 10. Penile edema. 11. Adrenal adenoma. 12. Chronic kidney disease. monitor clinically abx as ordered f/u on cx's keep melendez indwelling hand irrigate PRN monitor renal fxn pt does not want any intervention now Subjective Allergies: Coded Allergies: No Known Allergies (Unverified , 03/08/19) Subjective all noted, no new changes, no pain Objective Last 24 Hour Vital Signs Date Time Temp Pulse Resp B/P (MAP) Pulse Ox O2 Delivery O2 Flow Rate FiO2 03/10/19 08:00 98.6 84 18 173/105 (127) 97 03/10/19 04:00 98.6 77 24 143/94 (110) 96 03/10/19 00:00 98.4 89 24 145/92 (109) 95 03/09/19 21:00 Room Air 03/09/19 20:00 98.0 87 24 143/94 (110) 97 03/09/19 16:00 97.4 81 20 154/87 (109) 96 03/09/19 13:10 162/102 03/09/19 12:00 97.1 88 20 162/102 (122) 96 Intake and Output 03/09/19 03/10/19 19:00 07:00 Intake Total 110.0 ml Output Total 2200 ml 2000 ml Balance -2090.0 ml -2000 ml Intake IV Total 110.0 ml Output Urine Total 2200 ml 2000 ml Microbiology Date/Time Source Procedure Growth Status 03/08/19 16:40 Nasal Nares MRSA Culture - Final NO METHICILLIN RESISTANT STAPH AUREUS... Complete 03/08/19 14:10 Urine,Clean Catch Urine Culture - Final Proteus Mirabilis Complete 03/08/19 16:40 Rectum VRE Culture - Final Enterococcus Faecalis - Vre Resulted 03/08/19 16:40 Rectum Pending Resulted Current Medications Medications (Trade) Dose Ordered Sig/Dex Route PRN Reason Start Time Stop Time Status Last Admin Dose Admin Acetaminophen (Tylenol) 650 mg Q4H PRN ORAL Mild Pain (Pain Scale 1-3) 03/08/19 17:30 8/14/19 17:29 Barium Sulfate (Readi-Cat 2) 450 ml NOW PRN ORAL Radiology Procedure 03/08/19 14:15 03/10/19 14:04 Bethanechol Chloride (Urecholine) 25 mg FOUR TIMES A DAY ORAL 03/08/19 18:00 04/07/19 17:59 03/10/19 08:54 Dextrose (Dextrose 50%) 25 ml Q30M PRN IV Hypoglycemia 03/08/19 17:30 04/07/19 17:29 Dextrose (Dextrose 50%) 50 ml Q30M PRN IV Hypoglycemia 03/08/19 17:30 04/07/19 17:29 Ferrous Sulfate (Feosol) 325 mg TWICE A DAY ORAL 03/08/19 18:00 04/07/19 17:59 03/10/19 08:54 Furosemide (Lasix) 40 mg BID ORAL 03/09/19 18:00 04/08/19 08:59 03/10/19 08:54 Hydralazine HCl (Apresoline) 25 mg Q6H PRN ORAL For High Blood Pressure 03/08/19 18:30 04/07/19 18:29 03/09/19 13:10 Lorazepam (Ativan) 1 mg Q4H PRN ORAL For Anxiety 03/08/19 17:30 03/15/19 17:29 Morphine Sulfate (Morphine Sulfate) 1 mg Q4H PRN IVP Mild Pain (Pain Scale 1-3) 03/08/19 17:30 03/15/19 17:29 Morphine Sulfate (Morphine Sulfate) 2 mg Q4H PRN IVP Moderate Pain (Pain Scale 4-6) 03/08/19 17:30 03/15/19 17:29 Ondansetron HCl (Zofran) 4 mg Q6H PRN IVP Nausea & Vomiting 03/08/19 17:30 04/07/19 17:29 Piperacillin Sod/ Tazobactam Sod 3.375 gm/Sodium Chloride 110 ml @ 27.5 mls/hr Q8H IVPB 03/09/19 00:00 03/16/19 00:00 03/10/19 08:54 Tamsulosin HCl (Flomax) 0.4 mg DAILY ORAL 03/09/19 09:00 04/08/19 08:59 03/10/19 08:54 Temazepam (Restoril) 15 mg HSPRN PRN ORAL Insomnia 03/08/19 17:30 03/15/19 17:29 03/09/19 22:25 Vitamin B Complex/ Vit C/Folic Acid (Nephrovite) 1 tab DAILY ORAL 03/09/19 09:00 04/08/19 08:59 03/10/19 08:54 Laboratory Tests 03/10/19 05:30: White Blood Count 5.3, Red Blood Count 4.50L, Hemoglobin 13.5L, Hematocrit 43.3 , Mean Corpuscular Volume 96, Mean Corpuscular Hemoglobin 30.0, Mean Corpuscular Hemoglobin Concent 31.2L, Red Cell Distribution Width 15.5H, Platelet Count 134L, Mean Platelet Volume 7.6, Neutrophils (%) (Auto) 62.6, Lymphocytes (%) (Auto) 23.8, Monocytes (%) (Auto) 13.0H, Eosinophils (%) (Auto) 0.3, Basophils (%) (Auto) 0.3, Sodium Level 147H, Potassium Level 3.4L, Chloride Level 108H, Carbon Dioxide Level 29, Anion Gap 10, Blood Urea Nitrogen 31H, Creatinine 1.7H, Estimat Glomerular Filtration Rate , Glucose Level 129H, Calcium Level 8.7 Height (Feet): 5 Height (Inches): 6.00 Weight (Pounds): 149 Objective melendez indwelling, exam stable Luc Carr MD Mar 10, 2019 09:41
--- NOTE | 2019-03-10 10:50 | NUR ---
NURSE NOTES: Wound care nurse assessed patient's wound and recommended physician consult for wound. I communicated the matter to MD Major. Waiting to get order.
--- NOTE | 2019-03-10 11:35 | NUR ---
RD ASSESSMENT & RECOMMENDATIONS SEE CARE ACTIVITY FOR COMPLETE ASSESSMENT DAILY ESTIMATED NEEDS: Needs based on Wound, DM/ 61kg 25-30 kcals/kg [id number] total kcals 1.25-1.5 g protein/kg 76-92 g total protein 25-30 mL/kg 5369-7967 total fluid mLs NUTRITION DIAGNOSIS: * Increased kcal/prot/micronutrients needs R/T wound healing as evidenced by pt admitted w/ stage 3 wound @ [facility]. * Altered nutrition related lab values R/T diabetes, CKD as evidenced by elev BGs (129 166 205), elev creat (1.7) CURRENT DIET:RENAL PO DIET RECOMMENDATIONS: CCHO MED, LOW NA/Texture per MEDICAL REVIEW SPECIALIST + Glucerna TID w/ meals (no need for renal diet. Creat=1.7, K is low) ADDITIONAL RECOMMENDATIONS: * TXR pt to bed with bedscale, obtain calibrated bedscale wt * Wound healing:add MVI x 1, Vit C 500mg QD, ZnSO4 220mg QD x 10 days : [place] 1pkt BID added to tray * Glucerna TID w/ meals (pt refusing solids at this time) * Add NISS: H/o DM w/ elev BGs * A1C for eval of glycemic control * Monitor lytes daily w/ lasix, replete as needed (low K)
[2019-03-10 12:00] VITALS: BP 163/96
--- NOTE | 2019-03-10 12:38 | NUR ---
SWALLOW/SPEECH THERAPY NOTE: REFERRED BY DR MEDRANO FOR SWALLOW EVALUATION, SEE FULL REPORT IN ST CARE ACTIVITY SECTION. DYSPHAGIA RISK FACTORS FOR THIS 78 Y.O.M.: ACUTE ISSUES: GIB PERIRECTAL ABSCESS CELLULITIS, UTI, RENAL INSUFFICIENCY COUGHING UP YELLOW PHLEGM W/O PO ALSO COUGHS WITH PO (X 4 MONTHS) SOUNDS CONGESTED H/O PLEURAL EFFUSION LUNGS CLEAR NOW, ROOM AIR RR 18 NO INTAKE (EXCEPT TOOK CRUSHED MEDS WITH RN W/O APPARENT PROBLEMS) H/O GERD MEDS AT [facility] PANTOPRAZOLE [address] ONE TAB PER DAY BREAKFAST, HIV, ADULT FTT NO TF ON POLST, CARIDAC FAILURE, MUSCLE WEAKNESS, DM2, CKD, AKF, GASTRIC ULCER, RENAL INSUFFICIENCY, AND PSYCH ISSUES. LIKELY HAS A H/O OROPHARYNGEAL DYSPHAGIA. PER PATIENT, HE HAS HAD A LOT OF SWALLOWING TESTS AND DOESN'T WANT ANYMORE. DID NOT TELL ST WHERE THEY WERE DONE. AT [facility] ON A CCHO MECH SOFT CHOPPED DIET AND THIN LIQUIDS NOW ON RENAL REG TEXTURE DIET AND THIN LIQUIDS 0% INTAKE X2 YESTERDAY. PER RDLUCA, DOES NOT NEED RENAL DIET BEST DIET IS LOW NA AND CCHO-MED. REFUSING SOLID AND PUREED PO TRIALS. MISSING DENTITION (DID NOT OPEN MOUTH FOR ORAL INSPECTION) BUT SOME TEETH ON BOTTOM) AND SOUND HYPERNASAL BUT SPEECH IS INTELLIGIBLE. UPSET HE IS HERE FOR 3 DAYS SINCE HE THOUGHT HE WOULD GO HOME IN 2 HOURS. PATIENT WANTS GLUCERNA ONE CAN TID STRAWBERRY FLAVORED AND Carin FRUIT PUNCH BID w/ breakfast and lunch - mix w/ 8oz water COUGHED PRIOR TO PO TRIALS AND COUGHED UP PHLEGM. DENIES SWALLOWING PROBLEMS BUT SAYS HE WAS ASSESSED WITH ALL TYPES OF SWALLOW TESTS BEFORE AND DOESN'T WANT ASSESSMENT NOW. REFUSED OROMOTOR EVAL BUT TONGUE LOOKS LIKE IT HAS A WHITISH COATING ? R/O ORAL THRUSH (ON HIV MEDS USUALLY). INITIAL IMPRESSIONS: S/S OF A MILD-MODERATE OROPHARYNGEAL DYSPHAGIA SLOWER AND EFFORTFUL BUT GROSSLY FUNCTIONAL WITH CRUSHED MEDS AND PUREED W/O OVERT ASPIRATION (PER RN) (REFUSED PO TRIAL WITH ST) GIVEN GLUCERNA (SLIGHTLY THICKER THAN THIN BUT THINNER THAN NECTAR THICK LIQUIDS), VIA STRAW SEQUENTIAL SIPS, COUGHS AFTER THE SWALLOW. NO COUGH WHEN CUED TO TAKE SMALLER SIPS ONE AT A TIME HAS FAIR HYOLARYNGEAL EXCURSION BUT NEEDS SECOND SWALLOW (?TO CLEAR ORAL VS PHARYNGEAL OR BOTH RESIDUE) TENDS TO SWALLOW WITH EFFORT LIKELY WEAK SWALLOW. GIVEN CARIN ALMOST LIKE A THIN LIQUID (OR MILK CONSISTENCY), NO OVERT ASPIRATION BUT ALSO SWALLOWS TWICE PER SIP. MAY HAVE SILENT ASPIRATION RISK RECOMMENDATIONS: DOWNGRADE TO [facility] SOFT CHOPPED AND CONSIDER NECTAR THICK LIQUIDS (IF RECEPTIVE MAY REFUSE RN SAYS HE DISLIKES NECTAR THICK WATER) WITH POSTED ASPIRATION/REFLUX PRECAUTIONS WITH ASSIST WITH MEALS (WANTED ME TO HOLD STRAW FOR HIM THOUGH HE USED RIGHT HAND TO HOLD CARTON OF GLUCERNA). CALORIE COUNT WAS ON GERD MEDS AT [facility], NOT NOW, CONSIDER GIVING THESE MOD BARIUM SWALLOW STUDY ONLY IF RECEPTIVE (REFUSED TODAY) SKILLED DYSPHAGIA MANAGEMENT AND TX IF RECEPTIVE EDUCATED/TRAINED DONNELL BOB IN POSTED ASPIRATION PRECAUTIONS D/W RN AND MD R/O ORAL THRUSH OF TONGUE HAS WHITISH COATING (HIV OR OTHER MEDS RELATED?) LEFT MESSAGE WITH DR MEDRANO Addendum: 03/10/19 at 1247 by MURPHY MARQUEZ LACQUER POLISHER S/S OF A MILD-MODERATE OROPHARYNGEAL DYSPHAGIA WITH HIGH RISK FOR CHRONIC ASPIRATION (NO TF PER POLST) COULD BENEFIT FROM CXR GIVEN COUGHING UP PHLEGM AND CONGESTED
--- NOTE | 2019-03-10 15:47 | General Progress Note ---
Assessment/Plan Assessment/Plan: Status Narrative 78 y/o male with acute rectal bleed. # Rectal bleeding resolved. Hb is stable Monitor CBC - stable # HIV disease Continue HARRT - DOVATO entered and will ask SNF to see if they can deliver. Need to get the name and dose from [facility]. Left message and no response. # Leukocytosis most likely due to UTI Continue antibiotics and follow up cultures. Proteus and now enterococcus noted. 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 [facility] will follow up discussion with the patient as a new SNF might be an option for the future. # Sacral wound - Dr. Soto consulted # Dysphagia - ST evaluation noted and diet was adjusted. - Patient refused video swallow # Mobility - Patient declined PT evaluation in the Hospital. - Education provided. # BPH and neurogenic bladder - Dr. Carr consulted and no acute intervention is needed. - Rodriguez was changed in the last 1-2 weeks at SNF # FULL CODE Subjective ROS Limited/Unobtainable: Yes Allergies: Coded Allergies: No Known Allergies (Unverified , 03/08/19) Subjective Abdominal and flank distention. DENIES flank pain, fever or chills Objective Last 24 Hour Vital Signs Date Time Temp Pulse Resp B/P (MAP) Pulse Ox O2 Delivery O2 Flow Rate FiO2 03/10/19 12:00 98.4 83 19 163/96 (118) 96 03/10/19 09:00 Room Air 03/10/19 08:00 98.6 84 18 173/105 (127) 97 03/10/19 04:00 98.6 77 24 143/94 (110) 96 03/10/19 00:00 98.4 89 24 145/92 (109) 95 03/09/19 21:00 Room Air 03/09/19 20:00 98.0 87 24 143/94 (110) 97 03/09/19 16:00 97.4 81 20 154/87 (109) 96 Intake and Output 03/09/19 03/10/19 19:00 07:00 Intake Total 110.0 ml Output Total 2200 ml 2000 ml Balance -2090.0 ml -2000 ml Intake IV Total 110.0 ml Output Urine Total 2200 ml 2000 ml Laboratory Tests 03/10/19 05:30: White Blood Count 5.3, Red Blood Count 4.50L, Hemoglobin 13.5L, Hematocrit 43.3 , Mean Corpuscular Volume 96, Mean Corpuscular Hemoglobin 30.0, Mean Corpuscular Hemoglobin Concent 31.2L, Red Cell Distribution Width 15.5H, Platelet Count 134L, Mean Platelet Volume 7.6, Neutrophils (%) (Auto) 62.6, Lymphocytes (%) (Auto) 23.8, Monocytes (%) (Auto) 13.0H, Eosinophils (%) (Auto) 0.3, Basophils (%) (Auto) 0.3, Sodium Level 147H, Potassium Level 3.4L, Chloride Level 108H, Carbon Dioxide Level 29, Anion Gap 10, Blood Urea Nitrogen 31H, Creatinine 1.7H, Estimat Glomerular Filtration Rate , Glucose Level 129H, Calcium Level 8.7 Height (Feet): 5 Height (Inches): 6.00 Weight (Pounds): 149 General Appearance: WD/WN, no apparent distress EENT: PERRL/EOMI Neck: non-tender, normal alignment Cardiovascular: normal peripheral pulses Respiratory/Chest: chest wall non-tender, lungs clear Abdomen: normal bowel sounds Neurologic: career center advisor II-XII grossly normal Skin: normal pigmentation Juan Carlos Major MD Mar 10, 2019 15:47
[2019-03-10 16:00] VITALS: BP 159/95
--- NOTE | 2019-03-10 16:18 | Consultation ---
History of Present Illness General Date patient seen: Mar 10, 2019 Reason for Hospitalization: Gastrointestinal Bleed Present Illness HPI 78 year old male half-way resident presented with rectal and buttock pain for a few days. Noted to have some rectal bleeding. Came to [facility] [place]. surgery called to evaluate and assist with care. patient seen, chart reviewed, patient examined. currently comfortable and no complaints. no n /v/f/c. labs noted. Allergies: Coded Allergies: No Known Allergies (Unverified , 03/08/19) Medication History Scheduled Bethanechol Chl* (Urecholine*), 25 MG ORAL FOUR TIMES A DAY, (Reported) Ferrous Sulfate* (Ferrous Sulfate*), 325 MG ORAL TWICE A DAY, (Reported) Furosemide* (Lasix*), 40 MG ORAL DAILY, (Reported) Insulin Glargine (Lantus), 0 SUBQ BEDTIME, (Reported) Multivitamin with Minerals (Multivitamins with Minerals), 1 TAB ORAL DAILY, ( Reported) Tamsulosin HCl (Flomax), 0.4 MG ORAL DAILY, (Reported) Vitamin B Cmplx/Vit C/Folic AC (Nephro-Chadwick Tablet), 1 TAB ORAL DAILY, (Reported ) Miscellaneous Medications Loteprednol Etabonate (Alrex), 5 ML OP, (Reported) Timolol (Betimol), 5 ML OP, (Reported) Patient History History Provided By: Patient, Medical Record, PMD Healthcare decision maker Resuscitation status Full Code Advanced Directive on File Yes Past Medical/Surgical History Past Medical/Surgical History: (1) Araceli-rectal abscess (2) Ascites (3) Anasarca (4) Renal insufficiency (5) UTI (urinary tract infection) (6) Perirectal cellulitis Review of Systems Review of Symptoms General ROS: no weight loss or fever Psychological ROS: no depression or mood changes, no memory loss Ophthalmic ROS: no visual changes or eye irritation ENT ROS: no nasal congestion, hearing loss, dizziness Allergy and Immunology ROS: no allergic symptoms or urticaria Hematological and Lymphatic ROS: no swollen glands, unusual bleeding or bruising Endocrine ROS: no polyuria, polydipsia, weight changes, temperature intolerance Respiratory ROS: no cough, shortness of breath, or wheezing Cardiovascular ROS: no chest pain or dyspnea on exertion Gastrointestinal ROS: denies abdominal pain, bright red blood in stool. Musculoskeletal ROS: no myalgias or arthralgias Neurological ROS: no TIA or stroke symptoms Dermatological ROS: no new or changing skin lesions, rashes or pruritis Physical Exam Physical Exam General appearance: alert, cooperative, no distress, appears stated age Head: Normocephalic, without obvious abnormality, atraumatic Eyes: conjunctivae/corneas clear. PERRL, EOM's intact. Fundi benign Throat: Lips, mucosa, and tongue normal. Teeth and gums normal Neck: supple, symmetrical, trachea midline, no adenopathy, thyroid: not enlarged, symmetric, no tenderness/mass/nodules, no carotid bruit and no JVD Lungs: clear to auscultation bilaterally Heart: regular rate and rhythm, S1, S2 normal, no murmur, click, rub or gallop Abdomen: soft, non-tender. Bowel sounds normal. No masses, no organomegaly Extremities: extremities normal, atraumatic, no cyanosis or edema Pulses: 2+ and symmetric Skin: Skin color, texture, turgor normal. No rashes or lesions Neurologic: Grossly normal Last 24 Hour Vital Signs Date Time Temp Pulse Resp B/P (MAP) Pulse Ox O2 Delivery O2 Flow Rate FiO2 03/10/19 16:00 97.4 85 19 159/95 (116) 95 03/10/19 12:00 98.4 83 19 163/96 (118) 96 03/10/19 09:00 Room Air 03/10/19 08:00 98.6 84 18 173/105 (127) 97 03/10/19 04:00 98.6 77 24 143/94 (110) 96 03/10/19 00:00 98.4 89 24 145/92 (109) 95 03/09/19 21:00 Room Air 03/09/19 20:00 98.0 87 24 143/94 (110) 97 Intake and Output 03/09/19 03/10/19 19:00 07:00 Intake Total 110.0 ml Output Total 2200 ml 2000 ml Balance -2090.0 ml -2000 ml Intake IV Total 110.0 ml Output Urine Total 2200 ml 2000 ml Laboratory Tests Test 03/10/19 05:30 White Blood Count 5.3 K/UL (4.8-10.8) Red Blood Count 4.50 M/UL (4.70-6.10) L Hemoglobin 13.5 G/DL (14.2-18.0) L Hematocrit 43.3 % (42.0-52.0) Mean Corpuscular Volume 96 FL (80-99) Mean Corpuscular Hemoglobin 30.0 PG (27.0-31.0) Mean Corpuscular Hemoglobin Concent 31.2 G/DL (32.0-36.0) L Red Cell Distribution Width 15.5 % (11.6-14.8) H Platelet Count 134 K/UL (150-450) L Mean Platelet Volume 7.6 FL (6.5-10.1) Neutrophils (%) (Auto) 62.6 % (45.0-75.0) Lymphocytes (%) (Auto) 23.8 % (20.0-45.0) Monocytes (%) (Auto) 13.0 % (1.0-10.0) H Eosinophils (%) (Auto) 0.3 % (0.0-3.0) Basophils (%) (Auto) 0.3 % (0.0-2.0) Sodium Level 147 MMOL/L (136-145) H Potassium Level 3.4 MMOL/L (3.5-5.1) L Chloride Level 108 MMOL/L (98-107) H Carbon Dioxide Level 29 MMOL/L (21-32) Anion Gap 10 mmol/L (5-15) Blood Urea Nitrogen 31 mg/dL (7-18) H Creatinine 1.7 MG/DL (0.55-1.30) H Estimat Glomerular Filtration Rate mL/min (>60) Glucose Level 129 MG/DL (74-106) H Calcium Level 8.7 MG/DL (8.5-10.1) Height (Feet): 5 Height (Inches): 6.00 Weight (Pounds): 149 Medications Current Medications Medications (Trade) Dose Ordered Sig/Dex Route PRN Reason Start Time Stop Time Status Last Admin Dose Admin Acetaminophen (Tylenol) 650 mg Q4H PRN ORAL Mild Pain (Pain Scale 1-3) 03/08/19 17:30 04/07/19 17:29 Bethanechol Chloride (Urecholine) 25 mg FOUR TIMES A DAY ORAL 03/08/19 18:00 04/07/19 17:59 03/10/19 12:28 Dextrose (Dextrose 50%) 25 ml Q30M PRN IV Hypoglycemia 03/08/19 17:30 04/07/19 17:29 Dextrose (Dextrose 50%) 50 ml Q30M PRN IV Hypoglycemia 03/08/19 17:30 04/07/19 17:29 Ferrous Sulfate (Feosol) 325 mg TWICE A DAY ORAL 03/08/19 18:00 04/07/19 17:59 03/10/19 08:54 Furosemide (Lasix) 40 mg BID ORAL 03/09/19 18:00 04/08/19 08:59 03/10/19 08:54 Hydralazine HCl (Apresoline) 25 mg Q6H PRN ORAL For High Blood Pressure 03/08/19 18:30 04/07/19 18:29 03/09/19 13:10 Lorazepam (Ativan) 1 mg Q4H PRN ORAL For Anxiety 03/08/19 17:30 03/15/19 17:29 Morphine Sulfate (Morphine Sulfate) 1 mg Q4H PRN IVP Mild Pain (Pain Scale 1-3) 03/08/19 17:30 03/15/19 17:29 Morphine Sulfate (Morphine Sulfate) 2 mg Q4H PRN IVP Moderate Pain (Pain Scale 4-6) 03/08/19 17:30 03/15/19 17:29 Ondansetron HCl (Zofran) 4 mg Q6H PRN IVP Nausea & Vomiting 03/08/19 17:30 04/07/19 17:29 Patient Own Medication (Patient's Own Med) 1 ea DAILY ORAL 03/11/19 09:00 04/10/19 08:59 UNV Piperacillin Sod/ Tazobactam Sod 3.375 gm/Sodium Chloride 110 ml @ 27.5 mls/hr Q8H IVPB 03/09/19 00:00 03/16/19 00:00 03/10/19 15:07 Tamsulosin HCl (Flomax) 0.4 mg DAILY ORAL 03/09/19 09:00 04/08/19 08:59 03/10/19 08:54 Temazepam (Restoril) 15 mg HSPRN PRN ORAL Insomnia 03/08/19 17:30 03/15/19 17:29 03/09/19 22:25 Vitamin B Complex/ Vit C/Folic Acid (Nephrovite) 1 tab DAILY ORAL 03/09/19 09:00 04/08/19 08:59 03/10/19 08:54 Assessment/Plan Problem List: (1) Ascites ICD Codes: R18.8 - Other ascites SNOMED: 180455819 Qualifiers: Qualified Codes: R18.8 - Other ascites (2) Anasarca ICD Codes: R60.1 - Generalized edema SNOMED: 634543078, 174660920 (3) Renal insufficiency ICD Codes: N28.9 - Disorder of kidney and ureter, unspecified SNOMED: 276137373, 179351467 (4) UTI (urinary tract infection) ICD Codes: N39.0 - Urinary tract infection, site not specified SNOMED: 42330411, 664843929 Qualifiers: Qualified Codes: T83.511A - Infection and inflammatory reaction due to indwelling urethral catheter, initial encounter; N39.0 - Urinary tract infection , site not specified (5) Perirectal cellulitis Assessment & Plan: Pt presented on admission with Full thickness pressure injury L Ischium. Scattered slough with erythema at base of wound (L)1.2cm x (W) 0.8cm x (W)0.4cm. Borders are macerated with maroon discoloration without induration periwound. Pt verbalized tenderness at site. Pt also stated that he spends most of daytime sitting up in a W/c at [facility].Pt verbalized in [past was able to shift his weight while sitting but no longer able to shift weight .Pt stated he has a gelfoam cushion on his W/C. Maroon discoloration without induration,fluctuance or tenderness noted to sacral area (L)6.5cm x (W)6.5cm.. Haemosiderin stain noted to bilat lower ext. Pt noted to have tez bandages to both lower ext. Upon removal pt noted to skin indentations from wraps . No edemae noted to R or L lower extremities. Pt stated he does have History of swelling in lower ext. Rubor noted to plantar aspects of R and L feet. Both heels are fluctuant but pt denied tenderness when both heels palpated. does not seem to have perirectal abscess. likely etiology of bleeding the decubitus CT noted with proctitis Recommendations: Cleanse L Ischial wound with Saline. Apply Therahoney. Apply Cavilon Skin Barrier Periwound. Cover with Optifoam drsg Daily and prn. Apply Triad Paste to Sacrum. Cover with Optifoam drsg. Change every 3 days and prn. Apply Cavilon Skin Barrier to Both heels. Cover each heel with Optifoam drsg. Change every 7 days and prn. Apply Phytoplex Skin Nourishing Lotion to both lower ext Daily and PRN. Reposition at least every 2hours or as tolerated. Off-load heels with Pillow. APM/TETE Mattress Overlay. ICD Codes: K61.1 - Rectal abscess SNOMED: 926735, 892652886 (6) Araceli-rectal abscess ICD Codes: K61.1 - Rectal abscess SNOMED: 44944930 Maury Reynolds Mar 10, 2019 16:18
--- NOTE | 2019-03-10 19:26 | NUR ---
HAND-OFF: Report given to PAULINO Arboleda.
--- NOTE | 2019-03-10 19:42 | NUR ---
NURSE NOTES: Received report from PAULINO Bacon. Patient sleeping. On room air. Bed in lowest position. Will continue with plan of care.
[2019-03-10 20:00] VITALS: BP 153/95
[2019-03-11] VITALS (7 sets, daily range): BP systolic 117–161; BP diastolic 85–100
[2019-03-11] MEDS: Zoysn 3.37gm in NS 100ML IVPB SCH ×3 (01:13→16:00)
[2019-03-11 06:24] LABS: BASOPHILS % (AUTO) 0.3 % (0.0-2.0); EOSINOPHILS % (AUTO) 0.2 % (0.0-3.0); HEMATOCRIT 43.9 % (42.0-52.0); HEMOGLOBIN 13.7 G/DL (14.2-18.0); LYMPHOCYTES % (AUTO) 24.7 % (20.0-45.0); MEAN CORPUSCULAR VOLUME 97 FL (80-99); MONOCYTES % (AUTO) 13.7 % (1.0-10.0); NEUTROPHILS % (AUTO) 61.2 % (45.0-75.0); PLATELET COUNT 132 K/UL (150-450); RED BLOOD COUNT 4.52 M/UL (4.70-6.10); RED CELL DISTRIBUTION WIDTH 15.9 % (11.6-14.8); WHITE BLOOD COUNT 4.9 K/UL (4.8-10.8)
[2019-03-11 06:51] LABS: ANION GAP 9 mmol/L (5-15); BLOOD UREA NITROGEN 28 mg/dL (7-18); CALCIUM 8.7 MG/DL (8.5-10.1); CARBON DIOXIDE 31 MMOL/L (21-32); CHLORIDE 109 MMOL/L (98-107); CREATININE 1.6 MG/DL (0.55-1.30); SODIUM 150 MMOL/L (136-145)
[2019-03-11 06:53] LABS: POTASSIUM 2.6 MMOL/L (3.5-5.1)
[2019-03-11] MEDS ORDERED: Sodium Chloride for KCL Premix x 2hrs IV SCH (08:00)
--- NOTE | 2019-03-11 08:00 | NUR ---
NURSE NOTES: Patient is awake and alert,respiration unlabored. Rodriguez catheter is in place and draining yellow urine.Will assist patient with breakfast.Patient will receive IV potassium and po potassium as ordered. Call light within reach.
--- NOTE | 2019-03-11 08:21 | Urology Progress Note ---
Assessment/Plan Assessment/Plan: 1. BPH history. 2. Urinary retention with chronic Melendez. 3. Probable neurogenic bladder. 4. Urinary tract infection and probable chronic colonization. 5. Hematuria. 6. Proteinuria. 7. Nephrolithiasis. 8. Mild hydronephrosis. 9. Renal cysts. 10. Penile edema. 11. Adrenal adenoma. 12. Chronic kidney disease. monitor clinically abx as ordered f/u on cx's keep melendez indwelling hand irrigate PRN monitor renal fxn pt does not want any intervention now Subjective Allergies: Coded Allergies: No Known Allergies (Unverified , 03/08/19) Subjective all noted, no new changes, no pain Objective Last 24 Hour Vital Signs Date Time Temp Pulse Resp B/P (MAP) Pulse Ox O2 Delivery O2 Flow Rate FiO2 03/11/19 04:00 97.6 80 18 144/97 (113) 95 03/11/19 00:00 98.3 85 20 132/85 (101) 95 03/10/19 21:00 Room Air 03/10/19 20:00 97.8 86 20 153/95 (114) 95 03/10/19 16:00 97.4 85 19 159/95 (116) 95 03/10/19 12:00 98.4 83 19 163/96 (118) 96 03/10/19 09:00 Room Air Intake and Output 03/10/19 03/11/19 19:00 07:00 Intake Total 192.5 ml 137.5 ml Output Total 1200 ml 500 ml Balance -1007.5 ml -362.5 ml Intake IV Total 192.5 ml 137.5 ml Output Urine Total 1200 ml 500 ml Microbiology Date/Time Source Procedure Growth Status 03/08/19 16:40 Nasal Nares MRSA Culture - Final NO METHICILLIN RESISTANT STAPH AUREUS... Complete 03/08/19 14:10 Urine,Clean Catch Urine Culture - Final Proteus Mirabilis Complete 03/08/19 16:40 Rectum VRE Culture - Final Enterococcus Faecalis - Vre Resulted 03/08/19 16:40 Rectum Pending Resulted Current Medications Medications (Trade) Dose Ordered Sig/Dex Route PRN Reason Start Time Stop Time Status Last Admin Dose Admin Acetaminophen (Tylenol) 650 mg Q4H PRN ORAL Mild Pain (Pain Scale 1-3) 03/08/19 17:30 04/07/19 17:29 Bethanechol Chloride (Urecholine) 25 mg FOUR TIMES A DAY ORAL 03/08/19 18:00 04/07/19 17:59 03/10/19 23:09 Dextrose (Dextrose 50%) 25 ml Q30M PRN IV Hypoglycemia 03/08/19 17:30 04/07/19 17:29 Dextrose (Dextrose 50%) 50 ml Q30M PRN IV Hypoglycemia 03/08/19 17:30 04/07/19 17:29 Ferrous Sulfate (Feosol) 325 mg TWICE A DAY ORAL 03/08/19 18:00 04/07/19 17:59 03/10/19 17:10 Furosemide (Lasix) 40 mg BID ORAL 03/09/19 18:00 04/08/19 08:59 03/10/19 17:09 Hydralazine HCl (Apresoline) 25 mg Q6H PRN ORAL For High Blood Pressure 03/08/19 18:30 04/07/19 18:29 03/09/19 13:10 Lorazepam (Ativan) 1 mg Q4H PRN ORAL For Anxiety 03/08/19 17:30 03/15/19 17:29 Morphine Sulfate (Morphine Sulfate) 1 mg Q4H PRN IVP Mild Pain (Pain Scale 1-3) 03/08/19 17:30 03/15/19 17:29 Morphine Sulfate (Morphine Sulfate) 2 mg Q4H PRN IVP Moderate Pain (Pain Scale 4-6) 03/08/19 17:30 03/15/19 17:29 Ondansetron HCl (Zofran) 4 mg Q6H PRN IVP Nausea & Vomiting 03/08/19 17:30 04/07/19 17:29 Piperacillin Sod/ Tazobactam Sod 3.375 gm/Sodium Chloride 110 ml @ 27.5 mls/hr Q8H IVPB 03/09/19 00:00 03/16/19 00:00 03/11/19 01:13 Potassium Chloride 100 ml @ 100 mls/hr Q1H IVPB 03/11/19 08:00 03/11/19 09:59 Potassium Chloride (K-Dur) 40 meq ONCE ORAL 03/11/19 08:00 03/11/19 09:00 Sodium Chloride 200 ml @ 100 mls/hr Q2H IV 7/18/19 08:00 03/11/19 09:59 Tamsulosin HCl (Flomax) 0.4 mg DAILY ORAL 03/09/19 09:00 04/08/19 08:59 03/10/19 08:54 Temazepam (Restoril) 15 mg HSPRN PRN ORAL Insomnia 03/08/19 17:30 03/15/19 17:29 03/10/19 23:09 Vitamin B Complex/ Vit C/Folic Acid (Nephrovite) 1 tab DAILY ORAL 03/09/19 09:00 04/08/19 08:59 03/10/19 08:54 Laboratory Tests 03/11/19 04:51: White Blood Count 4.9, Red Blood Count 4.52L, Hemoglobin 13.7L, Hematocrit 43.9 , Mean Corpuscular Volume 97, Mean Corpuscular Hemoglobin 30.3, Mean Corpuscular Hemoglobin Concent 31.2L, Red Cell Distribution Width 15.9H, Platelet Count 132L, Mean Platelet Volume 7.7, Neutrophils (%) (Auto) 61.2, Lymphocytes (%) (Auto) 24.7, Monocytes (%) (Auto) 13.7H, Eosinophils (%) (Auto) 0.2, Basophils (%) (Auto) 0.3, Sodium Level 150H, Potassium Level 2.6*L, Chloride Level 109H, Carbon Dioxide Level 31, Anion Gap 9, Blood Urea Nitrogen 28H, Creatinine 1.6H, Estimat Glomerular Filtration Rate , Glucose Level 150H, Calcium Level 8.7 Height (Feet): 5 Height (Inches): 6.00 Weight (Pounds): 149 Objective melendez indwelling, exam stable Luc Carr MD Mar 11, 2019 08:21
[2019-03-11] MEDS: Tamsulosin 0.4mg cap ORAL SCH (08:28)
[2019-03-11] MEDS: Bethanechol 25mg Tab ORAL SCH ×4 (08:28→20:36)
[2019-03-11] MEDS: Nephrovite tab (Rena-Vite) ORAL SCH (08:28)
[2019-03-11] MEDS: Furosemide 40mg tab ORAL SCH ×2 (08:28→18:33)
--- NOTE | 2019-03-11 15:52 | Surgery Progress Note ---
Surgery Progress Note Subjective Additional Comments Patient seen and examined bedside. No acute events. Comfortable. No complaints. Objective Last 24 Hour Vital Signs Date Time Temp Pulse Resp B/P (MAP) Pulse Ox O2 Delivery O2 Flow Rate FiO2 03/11/19 12:00 96.9 80 18 148/97 (114) 97 03/11/19 09:00 Room Air 03/11/19 08:51 96.9 81 18 144/99 (114) 97 03/11/19 04:00 97.6 80 18 144/97 (113) 95 03/11/19 00:00 98.3 85 20 132/85 (101) 95 03/10/19 21:00 Room Air 03/10/19 20:00 97.8 86 20 153/95 (114) 95 03/10/19 16:00 97.4 85 19 159/95 (116) 95 I&O Intake and Output 03/10/19 03/11/19 19:00 07:00 Intake Total 192.5 ml 137.5 ml Output Total 1200 ml 500 ml Balance -1007.5 ml -362.5 ml Intake IV Total 192.5 ml 137.5 ml Output Urine Total 1200 ml 500 ml Dressing: dry Wound: clean Cardiovascular: RSR Respiratory: clear Abdomen: soft, present bowel sounds, non-distended Extremities: no tenderness, no cyanosis Laboratory Tests Test 03/11/19 04:51 White Blood Count 4.9 K/UL (4.8-10.8) Red Blood Count 4.52 M/UL (4.70-6.10) L Hemoglobin 13.7 G/DL (14.2-18.0) L Hematocrit 43.9 % (42.0-52.0) Mean Corpuscular Volume 97 FL (80-99) Mean Corpuscular Hemoglobin 30.3 PG (27.0-31.0) Mean Corpuscular Hemoglobin Concent 31.2 G/DL (32.0-36.0) L Red Cell Distribution Width 15.9 % (11.6-14.8) H Platelet Count 132 K/UL (150-450) L Mean Platelet Volume 7.7 FL (6.5-10.1) Neutrophils (%) (Auto) 61.2 % (45.0-75.0) Lymphocytes (%) (Auto) 24.7 % (20.0-45.0) Monocytes (%) (Auto) 13.7 % (1.0-10.0) H Eosinophils (%) (Auto) 0.2 % (0.0-3.0) Basophils (%) (Auto) 0.3 % (0.0-2.0) Sodium Level 150 MMOL/L (136-145) H Potassium Level 2.6 MMOL/L (3.5-5.1) *L Chloride Level 109 MMOL/L (98-107) H Carbon Dioxide Level 31 MMOL/L (21-32) Anion Gap 9 mmol/L (5-15) Blood Urea Nitrogen 28 mg/dL (7-18) H Creatinine 1.6 MG/DL (0.55-1.30) H Estimat Glomerular Filtration Rate mL/min (>60) Glucose Level 150 MG/DL (74-106) H Calcium Level 8.7 MG/DL (8.5-10.1) Plan Problems: (1) Ascites (2) Anasarca (3) Renal insufficiency (4) UTI (urinary tract infection) (5) Perirectal cellulitis Assessment & Plan: Pt presented on admission with Full thickness pressure injury L Ischium. Scattered slough with erythema at base of wound (L)1.2cm x (W) 0.8cm x (W)0.4cm. Borders are macerated with maroon discoloration without induration periwound. Pt verbalized tenderness at site. Pt also stated that he spends most of daytime sitting up in a W/c at [facility].Pt verbalized in [past was able to shift his weight while sitting but no longer able to shift weight .Pt stated he has a gelfoam cushion on his W/C. Maroon discoloration without induration,fluctuance or tenderness noted to sacral area (L)6.5cm x (W)6.5cm.. Haemosiderin stain noted to bilat lower ext. Pt noted to have tez bandages to both lower ext. Upon removal pt noted to skin indentations from wraps . No edemae noted to R or L lower extremities. Pt stated he does have History of swelling in lower ext. Rubor noted to plantar aspects of R and L feet. Both heels are fluctuant but pt denied tenderness when both heels palpated. does not seem to have perirectal abscess. likely etiology of bleeding the decubitus CT noted with proctitis Recommendations: Cleanse L Ischial wound with Saline. Apply Therahoney. Apply Cavilon Skin Barrier Periwound. Cover with Optifoam drsg Daily and prn. Apply Triad Paste to Sacrum. Cover with Optifoam drsg. Change every 3 days and prn. Apply Cavilon Skin Barrier to Both heels. Cover each heel with Optifoam drsg. Change every 7 days and prn. Apply Phytoplex Skin Nourishing Lotion to both lower ext Daily and PRN. Reposition at least every 2hours or as tolerated. Off-load heels with Pillow. APM/TETE Mattress Overlay. (6) Araceli-rectal abscess Maury Reynolds Mar 11, 2019 15:52
--- NOTE | 2019-03-11 17:18 | Discharge Instructions ---
Discharge Instructions Discharge Instructions Services at Discharge: physical therapy Diet: renal (80g protein, 2GM) Resume Normal Activity?: Yes For Congestive Heart Failure Reminder Report to your physician any weight gain of 5 pounds or more in one week. Juan Carlos Major MD Mar 11, 2019 17:18
[2019-03-11] MEDS ORDERED: DOVATO 50-3001 EACH PO (17:20)
--- NOTE | 2019-03-11 17:26 | Discharge Summary ---
Discharge Summary Hospital Course Date of Admission Mar 08, 2019 at 14:53 Date of Discharge Admitting Diagnosis perirectal abscess HPI Bossman Dent is a 78 year old male who was admitted on Mar 08, 2019 at 14: 53 for Perierctal Abscess Pt presented on admission with Full thickness pressure injury L Ischium. Per surgery evaluation: Scattered slough with erythema at base of wound (L)1.2cm x (W)0.8cm x (W)0.4cm. Borders are macerated with maroon discoloration without induration periwound. Pt verbalized tenderness at site. Pt also stated that he spends most of daytime sitting up in a W/c at [facility].Pt verbalized in [past was able to shift his weight while sitting but no longer able to shift weight .Pt stated he has a gelfoam cushion on his W/C. Maroon discoloration without induration,fluctuance or tenderness noted to sacral area (L)6.5cm x (W)6.5cm.. Haemosiderin stain noted to bilat lower ext. Pt noted to have tez bandages to both lower ext. Upon removal pt noted to skin indentations from wraps . No edemae noted to R or L lower extremities. Pt stated he does have History of swelling in lower ext. Rubor noted to plantar aspects of R and L feet. Both heels are fluctuant but pt denied tenderness when both heels palpated. does not seem to have perirectal abscess. likely etiology of bleeding the decubitus ulcer. CT noted with proctitis Recommendations: Cleanse L Ischial wound with Saline. Apply Therahoney. Apply Cavilon Skin Barrier Periwound. Cover with Optifoam drsg Daily and prn. Apply Triad Paste to Sacrum. Cover with Optifoam drsg. Change every 3 days and prn. Apply Cavilon Skin Barrier to Both heels. Cover each heel with Optifoam drsg. Change every 7 days and prn. Apply Phytoplex Skin Nourishing Lotion to both lower ext Daily and PRN. Reposition at least every 2hours or as tolerated. Off-load heels with Pillow. He had hypokalemia and was treated for it with KCL replacement. [facility] personal visited the patient and he is ready medically and emotionally to return to SNF. He is very happy at [facility] and not interested in new SNF. Hospital Course Status Narrative 78 y/o male with acute rectal bleed. # Rectal bleeding resolved. Hb is stable Monitor CBC - stable # HIV disease Continue MARIA ALEJANDRA MERCADO entered and will ask SNF to see if they can deliver. Need to get the name and dose from [facility]. Left message and no response. # Leukocytosis most likely due to UTI Continue antibiotics and follow up cultures. Proteus and now enterococcus noted. 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 [facility] personal will follow up discussion with the patient as a new SNF might be an option for the future. # Sacral wound - Dr. Soto consulted # Dysphagia - ST evaluation noted and diet was adjusted. - Patient refused video swallow # Mobility - Patient declined PT evaluation in the Hospital. - Education provided. # BPH and neurogenic bladder - Dr. Carr consulted and no acute intervention is needed. - Rodriguez was changed in the last 1-2 weeks at SNF # FULL CODE Discharge Medications Continued Medications: Bethanechol Chl* (Urecholine*) 25 Mg Tablet 25 MG ORAL FOUR TIMES A DAY, TAB Ferrous Sulfate* (Ferrous Sulfate*) 325 Mg Tablet 325 MG ORAL TWICE A DAY, #60 TAB 0 Refills Furosemide* (Lasix*) 40 Mg Tablet 40 MG ORAL DAILY, TAB Insulin Glargine (Lantus) 100 Unit/1 Ml Insuln.pen 0 SUBQ BEDTIME, #1 EA 0 Refills Loteprednol Etabonate (Alrex) 5 Ml Drops.susp 5 ML OP Multivitamin with Minerals (Multivitamins with Minerals) 1 Each Tablet 1 TAB ORAL DAILY, TAB Tamsulosin HCl (Flomax) 0.4 Mg Cap.er.24h 0.4 MG ORAL DAILY, CAP Timolol (Betimol) 5 Ml Drops 5 ML OP, ML Vitamin B Cmplx/Vit C/Folic AC (Nephro-Chadwick Tablet) 0.8 Mg Tablet 1 TAB ORAL DAILY, #30 TAB 0 Refills Discharge Condition Upon Discharge: stable Discharge Disposition Patient was discharged to [facility] Discharge Diagnoses: (1) Renal insufficiency (2) Perirectal cellulitis Discharge Instructions Discharge Instructions Services Upon Discharge: physical therapy Juan Carlos Major MD Mar 11, 2019 17:26
--- NOTE | 2019-03-11 17:27 | Discharge Instructions ---
Discharge Instructions Discharge Instructions Special Instructions Recommendations: Cleanse L Ischial wound with Saline. Apply Therahoney. Apply Cavilon Skin Barrier Periwound. Cover with Optifoam drsg Daily and prn. Apply Triad Paste to Sacrum. Cover with Optifoam drsg. Change every 3 days and prn. Apply Cavilon Skin Barrier to Both heels. Cover each heel with Optifoam drsg. Change every 7 days and prn. Apply Phytoplex Skin Nourishing Lotion to both lower ext Daily and PRN. Reposition at least every 2hours or as tolerated. Off-load heels with Pillow. For Congestive Heart Failure Reminder Report to your physician any weight gain of 5 pounds or more in one week. Juan Carlos Major MD Mar 11, 2019 17:27
[2019-03-11] MEDS ORDERED: Zoysn 3.37gm in NS 100ML IVPB SCH (18:30)
--- NOTE | 2019-03-11 18:35 | NUR ---
NURSE NOTES: Patient ate dinner, Potassium Level 3.1,additional potassium 40meq given as ordered.Call within reach.
--- NOTE | 2019-03-11 20:07 | NUR ---
HAND-OFF: Report given to FRANCISCO JAVIER BOB.
[2019-03-11] MEDS: HydrALAZINE 25mg tab ORAL PRN (20:36)
--- NOTE | 2019-03-11 22:10 | NUR ---
NURSE NOTES: Pt is discharged to [facility] in stable condition, vitals stable. Pt is awake and alert. Report given to Brissa at [facility]. Pt transferred via [facility] ambulance, all belongings , discharge instructions sent to SNF with ambulance personnel. Pt signed the belongings sheet. Sacral wound pictures taken. IV access and ID band removed. Pt left with Rodriguez cath intact and draining yellow urine. Receiving facility informed to keep Rodriguez cath per Dr. Carr's order.
== END 2019-03-11 22:12 | DRG 393 ==
LOC: EDBD 13:48 → EMR 14:30 → 4E 14:53 → EDBEDREQ 17:06
DX: K61.1 Rectal abscess (principal); L89.153 Pressure ulcer of sacral region, stage 3; B20 Human immunodeficiency virus [HIV] disease; N39.0 Urinary tract infection, site not specified; N18.4 Chronic kidney disease, stage 4 (severe); R18.8 Other ascites; N13.2 Hydronephrosis with renal and ureteral calculous obstruction; N31.9 Neuromuscular dysfunction of bladder, unspecified; N40.1 Benign prostatic hyperplasia with lower urinary tract symptoms; R33.8 Other retention of urine; R13.10 Dysphagia, unspecified; N20.0 Calculus of kidney; N28.1 Cyst of kidney, acquired; N48.89 Other specified disorders of penis; D35.00 Benign neoplasm of unspecified adrenal gland; L89.329 Pressure ulcer of left buttock, unspecified stage; E87.6 Hypokalemia
CPT/HCPCS: 36415; 74176; 80048; 80053; 80202; 81003; 82550; 83690; 83735; 84132; 84484; 85025; 85610; 85651; 85730; 86140; 87081; 87086; 87181; 92610; 93005; 96361; 96365; 96367; 99285; J8499